=== PATIENT | male | born 1990 | race Caucasian/White ===

== ENCOUNTER 2024-04-24 09:26 | Emergency (ER) | payer MEDICAID ==
[~2024-04-24] VITALS: Ht 188 cm; Wt 101.0 kg
[2024-04-24 09:32] VITALS: O2SAT 96
[2024-04-24 11:55] VITALS: BP 128/87; PULSE 79; RESP 16; TEMP 36.89184; O2SAT 99
== END 2024-04-24 13:50 | disposition home or self-care (01) ==
LOC: ER 09:26
DX: R51.9 Headache, unspecified (principal); Z87.74 Personal history of (corrected) congenital malformations of heart and circulatory system
CPT/HCPCS: 99284